=== PATIENT | female | born 1930 | race Caucasian/White ===

== ENCOUNTER 2017-08-01 07:41 | Inpatient (IN) ==
[2017-08-01 08:59] LABS: Basophils % 0.3 % (0.0-0.8); Eosinophils # 0.4 10*3/uL (0.0-0.87); Eosinophils % 2.5 % (0.00-10.9); Hematocrit 38.2 VOL% (35.7-47.0); Hemoglobin 13.3 GM/DL (12.0-16.0); Immature Granulocytes % 1.6 %; Immature Granulocytes Absolute 0.24 #; Lymphocytes # 1.9 10*3/uL (1.4-4.0); Lymphocytes % 12.5 % (21.3-54.2); Mean Corpuscular HGB Conc 34.8 GM/DL (32-36); Mean Corpuscular Hemoglobin 31 PG (27-34); Mean Corpuscular Volume 87.8 FL (87-102); Mean Platelet Volume 10.3 FL (9.6-12.0); Monocytes # 1.1 10*3/uL (0.11-0.8); Monocytes % 7.5 % (1.7-12.7); Neutrophils # 11.3 10*3/uL (1.4-7.4); Neutrophils % 75.6 % (38.7-73.9); Platelet Count 313 T/CUMM (130-400); Red Blood Count 4.35 MC/CUMM (3.8-5.5); Red Cell Distribution Width 12.5 % (9.3-17.3)
[2017-08-01 09:25] LABS: Albumin 3.4 G/DL (3.4-5.0); Bilirubin,Total 1.3 MG/DL (0.2-1.0); Calcium 8.8 MG/DL (8.5-10.1); Osmolality,Calculated 281.7 MOS/KG (273-304); Potassium 3.8 MMOL/L (3.5-5.1); Total Protein 6.7 G/DL (6.4-8.3)
[2017-08-01 09:36] LABS: Apearance,Urine Slightly Hazy (Clear); Bacteria,Urine Many /HPF (Few); Bilirubin,Urine Negative (Negative); Blood, Urine Negative (Negative); Glucose,Urine (UA) Negative (Negative); Hyaline Casts,Urine 1 /LPF (0-3); Ketones,Urine Negative (Negative); Mucus,Urine Occasional /LPF (Occasional); Nitrite,Urine Positive (Negative); Protein,Urine Negative; RBC,Urine 3 /HPF (0-4); Squamous Epithelial Cell,Urine Occasional /HPF (0-10); Urine Color Yellow (Yellow); Urine Specific Gravity 1.011 (1.001-1.035); WBC,Urine 99 /HPF (0-6)
[2017-08-01] MEDS ORDERED: LEVOFLOXACIN INJ 500 MG in PREMIX 1 EACH IV STA (10:09)
[2017-08-01] MEDS: SODIUM CHLORIDE 0.9% 1,000 ML IV SCH (14:09)
[2017-08-01] MEDS: metFORMIN 500 MG TABLET PO SCH (16:34)
[2017-08-01] MEDS: ROSUVASTATIN 20 MG TABLET PO SCH (21:26)
[2017-08-01] MEDS: APIXABAN 2.5 MG TABLET PO SCH (21:27)
[2017-08-01] MEDS: LISINOPRIL 20 MG TABLET PO SCH (21:28)
[2017-08-02 01:15] LABS: Calcium 8.4 MG/DL (8.5-10.1); Osmolality,Calculated 283.5 MOS/KG (273-304); Potassium 3.8 MMOL/L (3.5-5.1)
[2017-08-02 01:30] LABS: Basophils % 0.2 % (0.0-0.8); Eosinophils # 0.1 10*3/uL (0.0-0.87); Eosinophils % 0.7 % (0.00-10.9); Hematocrit 34.5 VOL% (35.7-47.0); Hemoglobin 12.2 GM/DL (12.0-16.0); Immature Granulocytes % 0.9 %; Immature Granulocytes Absolute 0.15 #; Lymphocytes # 2.4 10*3/uL (1.4-4.0); Lymphocytes % 13.8 % (21.3-54.2); Mean Corpuscular HGB Conc 35.4 GM/DL (32-36); Mean Corpuscular Hemoglobin 31 PG (27-34); Mean Corpuscular Volume 86.3 FL (87-102); Monocytes # 1.4 10*3/uL (0.11-0.8); Monocytes % 7.7 % (1.7-12.7); Neutrophils # 13.5 10*3/uL (1.4-7.4); Neutrophils % 76.7 % (38.7-73.9); Platelet Count 282 T/CUMM (130-400); Red Cell Distribution Width 12.5 % (9.3-17.3); White Blood Count 17.6 T/CUMM (4-12)
[2017-08-02] MEDS: PANTOPRAZOLE 40 MG TABLET PO SCH (08:59)
[2017-08-02] MEDS: APIXABAN 2.5 MG TABLET PO SCH ×2 (08:59→20:50)
[2017-08-02] MEDS: metFORMIN 500 MG TABLET PO SCH ×2 (08:59→17:16)
[2017-08-02] MEDS ORDERED: LEVOFLOXACIN INJ 500 MG in PREMIX 1 EACH IV SCH (09:00)
[2017-08-02] MEDS: SODIUM CHLORIDE 0.9% 1,000 ML IV SCH ×2 (11:57→17:18)
[2017-08-02] MEDS: ROSUVASTATIN 20 MG TABLET PO SCH (20:49)
[2017-08-02] MEDS: LISINOPRIL 20 MG TABLET PO SCH (20:50)
[2017-08-02] MEDS: levETIRAcetam 500 MG TABLET PO SCH (20:52)
[2017-08-03 05:01] LABS: Basophils # 0.1 10*3/uL (0.0-0.2); Basophils % 0.3 % (0.0-0.8); Eosinophils # 0.2 10*3/uL (0.0-0.87); Eosinophils % 1.5 % (0.00-10.9); Immature Granulocytes % 0.7 %; Immature Granulocytes Absolute 0.11 #; Lymphocytes # 1.9 10*3/uL (1.4-4.0); Lymphocytes % 12.1 % (21.3-54.2); Mean Corpuscular HGB Conc 35.5 GM/DL (32-36); Mean Corpuscular Hemoglobin 31 PG (27-34); Mean Corpuscular Volume 86.8 FL (87-102); Mean Platelet Volume 10.6 FL (9.6-12.0); Monocytes # 1.2 10*3/uL (0.11-0.8); Monocytes % 7.7 % (1.7-12.7); Neutrophils % 77.7 % (38.7-73.9); Platelet Count 237 T/CUMM (130-400); Red Blood Count 3.57 MC/CUMM (3.8-5.5); Red Cell Distribution Width 12.4 % (9.3-17.3); White Blood Count 15.5 T/CUMM (4-12)
[2017-08-03 05:32] LABS: Calcium 7.8 MG/DL (8.5-10.1); Osmolality,Calculated 279.7 MOS/KG (273-304); Potassium 3.6 MMOL/L (3.5-5.1)
[2017-08-03] MEDS: SODIUM CHLORIDE 0.9% 1,000 ML IV SCH ×3 (06:41→13:55)
[2017-08-03] MEDS: PANTOPRAZOLE 40 MG TABLET PO SCH (08:57)
[2017-08-03] MEDS: metFORMIN 500 MG TABLET PO SCH ×2 (08:57→17:25)
[2017-08-03] MEDS: levETIRAcetam 500 MG TABLET PO SCH ×2 (08:57→17:25)
[2017-08-03] MEDS: APIXABAN 2.5 MG TABLET PO SCH ×2 (08:58→21:43)
[2017-08-03] MEDS ORDERED: MEROPENEM 500 MG in SYRINGE 1 EACH IV SCH (09:00)
[2017-08-03] MEDS: CIPROFLOXACIN INJ 400 MG in PREMIX 1 EACH IV SCH (13:45)
[2017-08-03] MEDS: LISINOPRIL 20 MG TABLET PO SCH (21:43)
[2017-08-03] MEDS: ROSUVASTATIN 20 MG TABLET PO SCH (21:43)
[2017-08-04] MEDS: CIPROFLOXACIN INJ 400 MG in PREMIX 1 EACH IV SCH ×2 (00:52→13:07)
[2017-08-04 05:36] LABS: Basophils # 0.1 10*3/uL (0.0-0.2); Basophils % 0.3 % (0.0-0.8); Eosinophils # 0.2 10*3/uL (0.0-0.87); Eosinophils % 1.4 % (0.00-10.9); Hematocrit 29.5 VOL% (35.7-47.0); Immature Granulocytes % 0.6 %; Immature Granulocytes Absolute 0.09 #; Lymphocytes # 1.6 10*3/uL (1.4-4.0); Lymphocytes % 10.5 % (21.3-54.2); Mean Corpuscular HGB Conc 33.9 GM/DL (32-36); Mean Corpuscular Hemoglobin 30 PG (27-34); Mean Corpuscular Volume 89.1 FL (87-102); Mean Platelet Volume 11.5 FL (9.6-12.0); Monocytes # 1.2 10*3/uL (0.11-0.8); Monocytes % 7.7 % (1.7-12.7); Neutrophils # 12.1 10*3/uL (1.4-7.4); Neutrophils % 79.5 % (38.7-73.9); Platelet Count 235 T/CUMM (130-400); Red Blood Count 3.31 MC/CUMM (3.8-5.5); Red Cell Distribution Width 12.4 % (9.3-17.3); White Blood Count 15.3 T/CUMM (4-12)
[2017-08-04 06:04] LABS: Calcium 7.9 MG/DL (8.5-10.1); Osmolality,Calculated 278.7 MOS/KG (273-304); Potassium 3.4 MMOL/L (3.5-5.1)
[2017-08-04] MEDS ORDERED: POTASSIUM CHLORIDE 20 MEQ TABLET PO PRN (06:36)
[2017-08-04] MEDS: SODIUM CHLORIDE 0.9% 1,000 ML IV SCH ×2 (06:51→09:29)
[2017-08-04] MEDS: metFORMIN 500 MG TABLET PO SCH ×2 (09:22→17:21)
[2017-08-04] MEDS: PANTOPRAZOLE 40 MG TABLET PO SCH (09:22)
[2017-08-04] MEDS: levETIRAcetam 250 MG TABLET PO SCH (09:23)
[2017-08-04] MEDS: APIXABAN 2.5 MG TABLET PO SCH ×2 (09:23→21:16)
[2017-08-04] MEDS: POTASSIUM CHLORIDE 20 MEQ TABLET PO SCH ×2 (11:00→13:06)
[2017-08-04] MEDS: levETIRAcetam 500 MG TABLET PO SCH (17:21)
[2017-08-04] MEDS: ROSUVASTATIN 20 MG TABLET PO SCH (21:16)
[2017-08-04] MEDS: LISINOPRIL 20 MG TABLET PO SCH (21:17)
[2017-08-05] MEDS: CIPROFLOXACIN INJ 400 MG in PREMIX 1 EACH IV SCH (01:14)
[2017-08-05 03:53] LABS: Basophils # 0.1 10*3/uL (0.0-0.2); Basophils % 0.4 % (0.0-0.8); Eosinophils # 0.3 10*3/uL (0.0-0.87); Eosinophils % 2.8 % (0.00-10.9); Hemoglobin 10.2 GM/DL (12.0-16.0); Immature Granulocytes % 0.6 %; Immature Granulocytes Absolute 0.07 #; Lymphocytes % 16.3 % (21.3-54.2); Mean Corpuscular Hemoglobin 30 PG (27-34); Mean Corpuscular Volume 88.5 FL (87-102); Mean Platelet Volume 11.4 FL (9.6-12.0); Monocytes # 1.2 10*3/uL (0.11-0.8); Monocytes % 9.5 % (1.7-12.7); Neutrophils # 8.6 10*3/uL (1.4-7.4); Neutrophils % 70.4 % (38.7-73.9); Platelet Count 249 T/CUMM (130-400); Red Blood Count 3.39 MC/CUMM (3.8-5.5); Red Cell Distribution Width 12.6 % (9.3-17.3); White Blood Count 12.2 T/CUMM (4-12)
[2017-08-05 04:17] LABS: Osmolality,Calculated 275.8 MOS/KG (273-304); Potassium 4.3 MMOL/L (3.5-5.1)
[2017-08-05 07:48] VITALS: BP 144/60
[2017-08-05] MEDS: metFORMIN 500 MG TABLET PO SCH (09:04)
[2017-08-05] MEDS: PANTOPRAZOLE 40 MG TABLET PO SCH (09:04)
[2017-08-05] MEDS: APIXABAN 2.5 MG TABLET PO SCH (09:04)
[2017-08-05] MEDS: levETIRAcetam 250 MG TABLET PO SCH (09:04)
== END 2017-08-05 10:53 | DRG 309 ==
LOC: EDUNIT# → EDBD → N.ED 07:41 → N.EDINP 10:06 → N.TELES 13:48
PROVIDERS: ADMIT Internal Medicine; ATTEND Internal Medicine

== ENCOUNTER 2017-08-13 08:51 | Inpatient (IN) ==
[2017-08-13] MEDS ORDERED: SODIUM CHLORIDE 0.9% 500 ML IV STA (09:36)
[2017-08-13 10:48] LABS: Basophils # 0.1 10*3/uL (0.0-0.2); Basophils % 0.8 % (0.0-0.8); Eosinophils # 0.3 10*3/uL (0.0-0.87); Hematocrit 31.6 VOL% (35.7-47.0); Hemoglobin 11.1 GM/DL (12.0-16.0); Immature Granulocytes % 1.3 %; Immature Granulocytes Absolute 0.12 #; Lymphocytes # 1.3 10*3/uL (1.4-4.0); Lymphocytes % 13.1 % (21.3-54.2); Mean Corpuscular HGB Conc 35.1 GM/DL (32-36); Mean Corpuscular Hemoglobin 31 PG (27-34); Mean Corpuscular Volume 87.3 FL (87-102); Mean Platelet Volume 9.1 FL (9.6-12.0); Monocytes # 0.8 10*3/uL (0.11-0.8); Monocytes % 8.7 % (1.7-12.7); Neutrophils % 73.1 % (38.7-73.9); Platelet Count 428 T/CUMM (130-400); Red Blood Count 3.62 MC/CUMM (3.8-5.5); Red Cell Distribution Width 12.5 % (9.3-17.3); White Blood Count 9.5 T/CUMM (4-12)
[2017-08-13 11:00] LABS: Amorphous Crystals,Urine Occasional /HPF (Few); Apearance,Urine CLOUDY (Clear); Bacteria,Urine Many /HPF (Few); Bilirubin,Urine Negative (Negative); Blood, Urine Moderate mg/dL (Negative); Glucose,Urine (UA) Negative (Negative); Ketones,Urine Negative (Negative); Mucus,Urine Occasional /LPF (Occasional); Nitrite,Urine Negative (Negative); Protein,Urine 100 MG/DL; Squamous Epithelial Cell,Urine Occasional /HPF (0-10); Urine Color Yellow (Yellow); Urine Specific Gravity 1.011 (1.001-1.035); Urine Urobilinogen < 2.0 EU/DL (0.2-1.0); WBC,Urine <1 /HPF (0-6)
[2017-08-13 11:30] LABS: Albumin 2.3 G/DL (3.4-5.0); Bilirubin,Total 1.2 MG/DL (0.2-1.0); Calcium 8.4 MG/DL (8.5-10.1); Osmolality,Calculated 281.1 MOS/KG (273-304); Potassium 3.2 MMOL/L (3.5-5.1); Total Protein 6.5 G/DL (6.4-8.3)
[2017-08-13 12:07] LABS: INR 1.1; PT Patient Result 11.4 SECS; Partial Thromboplastin Time 31.3 SECS (0-40)
[2017-08-13] MEDS ORDERED: ONDANSETRON 4 MG/2 ML VIAL IV PRN (14:32)
[2017-08-13] MEDS ORDERED: ACETAMINOPHEN 325 MG SUPP RECTAL PRN (14:34)
[2017-08-13] MEDS ORDERED: hydrALAZINE 20 MG/1 ML VIAL IV PRN (14:36)
[2017-08-13] MEDS ORDERED: GLUCAGON 1 MG VIAL IM PRN (14:37)
[2017-08-13] MEDS ORDERED: DEXTROSE 50% 25 GM/50 ML VIAL IV PRN (14:37)
[2017-08-13] MEDS: DEXTROSE 5% NACL 0.45% 1,000 ML IV SCH (15:57)
[2017-08-13] MEDS: MEROPENEM 1,000 MG in SYRINGE 1 EACH IV SCH (15:59)
[2017-08-13] MEDS: metroNIDAZOLE INJ 500 MG in PREMIX 1 EACH IV SCH ×2 (16:04→23:53)
[2017-08-13] MEDS: FLUCONAZOLE INJ 100 MG in IV BAG 1 EACH IV SCH (17:08)
[2017-08-13] MEDS: INSULIN REGULAR 100 UNIT/ML SUBCUT SCH (19:02)
[2017-08-14] MEDS: MEROPENEM 1,000 MG in SYRINGE 1 EACH IV SCH ×2 (03:08→16:03)
[2017-08-14 05:25] LABS: Basophils # 0.1 10*3/uL (0.0-0.2); Basophils % 0.9 % (0.0-0.8); Eosinophils # 0.3 10*3/uL (0.0-0.87); Eosinophils % 3.6 % (0.00-10.9); Hematocrit 31.8 VOL% (35.7-47.0); Hemoglobin 11.3 GM/DL (12.0-16.0); Immature Granulocytes % 1.9 %; Immature Granulocytes Absolute 0.15 #; Lymphocytes # 0.8 10*3/uL (1.4-4.0); Lymphocytes % 10.2 % (21.3-54.2); Mean Corpuscular HGB Conc 35.5 GM/DL (32-36); Mean Corpuscular Hemoglobin 30 PG (27-34); Mean Corpuscular Volume 84.6 FL (87-102); Mean Platelet Volume 9.1 FL (9.6-12.0); Monocytes # 0.7 10*3/uL (0.11-0.8); Monocytes % 9.3 % (1.7-12.7); Neutrophils # 5.7 10*3/uL (1.4-7.4); Neutrophils % 74.1 % (38.7-73.9); Platelet Count 429 T/CUMM (130-400); Red Blood Count 3.76 MC/CUMM (3.8-5.5); Red Cell Distribution Width 12.6 % (9.3-17.3); White Blood Count 7.8 T/CUMM (4-12)
[2017-08-14 05:59] LABS: Albumin 2.2 G/DL (3.4-5.0); Calcium 8.5 MG/DL (8.5-10.1); Osmolality,Calculated 289.3 MOS/KG (273-304); Potassium 2.9 MMOL/L (3.5-5.1); Total Protein 6.3 G/DL (6.4-8.3)
[2017-08-14] MEDS: INSULIN REGULAR 100 UNIT/ML SUBCUT SCH ×4 (07:41→18:46)
[2017-08-14] MEDS: PANTOPRAZOLE 40 MG VIAL IV SCH ×2 (09:19→21:00)
[2017-08-14] MEDS: metroNIDAZOLE INJ 500 MG in PREMIX 1 EACH IV SCH ×2 (09:19→16:03)
[2017-08-14] MEDS: DEXTROSE 5% NACL 0.45% 1,000 ML IV SCH ×2 (11:48→17:41)
[2017-08-14] MEDS: POTASSIUM CHLORIDE 20 MEQ TABLET PO PRN ×3 (14:00→18:58)
[2017-08-14] MEDS: FLUCONAZOLE INJ 100 MG in IV BAG 1 EACH IV SCH (17:41)
[2017-08-14] MEDS: PHENYTOIN 100 MG/2 ML VIAL IV SCH (18:59)
[2017-08-15] MEDS: metroNIDAZOLE INJ 500 MG in PREMIX 1 EACH IV SCH ×3 (00:19→18:52)
[2017-08-15] MEDS: SODIUM CHLORIDE IV SCH ×3 (02:19→22:06)
[2017-08-15] MEDS: FOSPHENYTOIN IV SCH ×3 (02:19→22:06)
[2017-08-15] MEDS: [UNRECOGNIZED DRUG - OTHER] IV SCH ×3 (02:19→22:06)
[2017-08-15] MEDS: INSULIN REGULAR 100 UNIT/ML SUBCUT SCH ×4 (02:31→18:53)
[2017-08-15] MEDS: MEROPENEM 1,000 MG in SYRINGE 1 EACH IV SCH ×2 (03:23→16:14)
[2017-08-15] MEDS: PHENYTOIN 100 MG/2 ML VIAL IV SCH ×2 (03:51→11:26)
[2017-08-15 05:31] LABS: Basophils # 0.1 10*3/uL (0.0-0.2); Basophils % 1.4 % (0.0-0.8); Eosinophils # 0.6 10*3/uL (0.0-0.87); Hematocrit 29.3 VOL% (35.7-47.0); Hemoglobin 10.8 GM/DL (12.0-16.0); Immature Granulocytes % 2.7 %; Immature Granulocytes Absolute 0.16 #; Lymphocytes % 17.2 % (21.3-54.2); Mean Corpuscular HGB Conc 36.9 GM/DL (32-36); Mean Corpuscular Hemoglobin 31 PG (27-34); Mean Corpuscular Volume 83.2 FL (87-102); Mean Platelet Volume 8.9 FL (9.6-12.0); Monocytes # 0.7 10*3/uL (0.11-0.8); Neutrophils # 3.4 10*3/uL (1.4-7.4); Neutrophils % 56.7 % (38.7-73.9); Platelet Count 364 T/CUMM (130-400); Red Blood Count 3.52 MC/CUMM (3.8-5.5); Red Cell Distribution Width 12.7 % (9.3-17.3); White Blood Count 5.9 T/CUMM (4-12)
[2017-08-15 05:57] LABS: Osmolality,Calculated 283.4 MOS/KG (273-304); Potassium 2.8 MMOL/L (3.5-5.1)
[2017-08-15] MEDS ORDERED: POTASSIUM CHLORIDE RIDER 10 MEQ in PREMIX 1 EACH IV ONE (07:50)
[2017-08-15] MEDS ORDERED: POTASSIUM CHLORIDE INJ 10 MEQ in SODIUM CHLORIDE 0.9% 1,000 ML IV SCH (08:00)
[2017-08-15] MEDS: PANTOPRAZOLE 40 MG VIAL IV SCH ×2 (11:25→22:06)
[2017-08-15] MEDS ORDERED: ETOMIDATE 20 MG/10 ML VIAL IV ONE (15:08)
[2017-08-15] MEDS ORDERED: LIDOCAINE 1% 5 ML VIAL ONE (15:08)
[2017-08-15] MEDS ORDERED: PROPOFOL 200 MG/20 ML VIAL IV ONE (15:08)
[2017-08-15] MEDS: ZINC OXIDE PASTE 113 GM TUBE TOP SCH ×2 (16:25→22:07)
[2017-08-15] MEDS: FLUCONAZOLE INJ 100 MG in IV BAG 1 EACH IV SCH (20:02)
[2017-08-15] MEDS: DEXTROSE 5% NACL 0.45% 1,000 ML IV SCH (20:03)
[2017-08-15] MEDS: MEGESTROL ES 125 MG/ML 30 ML/BOTTLE PO SCH (20:45)
[2017-08-16] MEDS: metroNIDAZOLE INJ 500 MG in PREMIX 1 EACH IV SCH ×2 (00:41→09:57)
[2017-08-16] MEDS: INSULIN REGULAR 100 UNIT/ML SUBCUT SCH ×4 (00:41→18:34)
[2017-08-16] MEDS: MEROPENEM 1,000 MG in SYRINGE 1 EACH IV SCH (03:49)
[2017-08-16] MEDS: DEXTROSE 5% NACL 0.45% 1,000 ML IV SCH ×2 (04:25→20:05)
[2017-08-16] MEDS: [UNRECOGNIZED DRUG - OTHER] IV SCH ×3 (04:26→22:23)
[2017-08-16] MEDS: SODIUM CHLORIDE IV SCH ×3 (04:26→22:23)
[2017-08-16] MEDS: FOSPHENYTOIN IV SCH ×3 (04:26→22:23)
[2017-08-16] MEDS: PANTOPRAZOLE 40 MG VIAL IV SCH ×2 (09:55→22:24)
[2017-08-16] MEDS: ZINC OXIDE PASTE 113 GM TUBE TOP SCH ×2 (09:57→22:24)
[2017-08-16] MEDS: MEGESTROL ES 125 MG/ML 30 ML/BOTTLE PO SCH (09:57)
[2017-08-16] MEDS ORDERED: METOPROLOL TARTRATE 5 MG/5 ML VIAL IV ONE (13:36)
[2017-08-16] MEDS ORDERED: MORPHINE 4 MG/1 ML VIAL IV PRN (14:39)
[2017-08-17] MEDS: INSULIN REGULAR 100 UNIT/ML SUBCUT SCH ×5 (00:25→23:18)
[2017-08-17] MEDS: FOSPHENYTOIN IV SCH ×3 (05:18→20:53)
[2017-08-17] MEDS: SODIUM CHLORIDE IV SCH ×3 (05:18→20:53)
[2017-08-17] MEDS: [UNRECOGNIZED DRUG - OTHER] IV SCH ×3 (05:18→20:53)
[2017-08-17] MEDS: PANTOPRAZOLE 40 MG VIAL IV SCH ×2 (09:58→21:25)
[2017-08-17] MEDS: MEGESTROL ES 125 MG/ML 30 ML/BOTTLE PO SCH (09:58)
[2017-08-17] MEDS: ZINC OXIDE PASTE 113 GM TUBE TOP SCH ×2 (10:04→20:56)
[2017-08-17] MEDS: DEXTROSE 5% NACL 0.45% 1,000 ML IV SCH (16:51)
[2017-08-18] MEDS: [UNRECOGNIZED DRUG - OTHER] IV SCH ×2 (04:56→11:06)
[2017-08-18] MEDS: FOSPHENYTOIN IV SCH ×2 (04:56→11:06)
[2017-08-18] MEDS: SODIUM CHLORIDE IV SCH ×2 (04:56→11:06)
[2017-08-18] MEDS: INSULIN REGULAR 100 UNIT/ML SUBCUT SCH ×2 (05:53→11:06)
[2017-08-18] MEDS: PANTOPRAZOLE 40 MG VIAL IV SCH (10:13)
[2017-08-18] MEDS: ZINC OXIDE PASTE 113 GM TUBE TOP SCH ×2 (10:13→22:00)
[2017-08-18] MEDS: MEGESTROL ES 125 MG/ML 30 ML/BOTTLE PO SCH (10:15)
[2017-08-18] MEDS: DEXTROSE 5% NACL 0.45% 1,000 ML IV SCH (13:50)
[2017-08-19] MEDS: INSULIN REGULAR 100 UNIT/ML SUBCUT SCH ×5 (02:36→17:34)
[2017-08-19] MEDS: FOSPHENYTOIN IV SCH ×4 (02:37→20:16)
[2017-08-19] MEDS: SODIUM CHLORIDE IV SCH ×4 (02:37→20:16)
[2017-08-19] MEDS: [UNRECOGNIZED DRUG - OTHER] IV SCH ×4 (02:37→20:16)
[2017-08-19] MEDS: PANTOPRAZOLE 40 MG VIAL IV SCH ×3 (02:38→20:19)
[2017-08-19] MEDS: DEXTROSE 5% NACL 0.45% 1,000 ML IV SCH (08:51)
[2017-08-19] MEDS: ZINC OXIDE PASTE 113 GM TUBE TOP SCH ×2 (09:09→20:17)
[2017-08-19] MEDS: MEGESTROL ES 125 MG/ML 30 ML/BOTTLE PO SCH (09:10)
[2017-08-19 16:25] VITALS: BP 128/72
[2017-08-20] MEDS: INSULIN REGULAR 100 UNIT/ML SUBCUT SCH ×3 (01:03→14:19)
[2017-08-20] MEDS: SODIUM CHLORIDE IV SCH ×2 (06:45→11:33)
[2017-08-20] MEDS: [UNRECOGNIZED DRUG - OTHER] IV SCH ×2 (06:45→11:33)
[2017-08-20] MEDS: FOSPHENYTOIN IV SCH ×2 (06:45→11:33)
[2017-08-20] MEDS: DEXTROSE 5% NACL 0.45% 1,000 ML IV SCH (06:48)
[2017-08-20] MEDS: MEGESTROL ES 125 MG/ML 30 ML/BOTTLE PO SCH (08:50)
[2017-08-20] MEDS: PANTOPRAZOLE 40 MG VIAL IV SCH (08:50)
[2017-08-20] MEDS: ZINC OXIDE PASTE 113 GM TUBE TOP SCH (11:34)
== END 2017-08-20 13:26 | disposition hospice, home (50) | DRG 64 ==
LOC: EDUNIT# → N.ED 08:51 → N.EDINP 14:09 → SUATTDRO 14:09 → N.4E 14:46
PROVIDERS: ADMIT Family Medicine